=== PATIENT | male | born 1960 | race Caucasian/White ===

== ENCOUNTER 2018-08-07 11:01 | Day surgery (SDC) | payer BC ==
[2018-08-07] MEDS ORDERED: PROPOFOL 20 ML (14:41)
== END 2018-08-07 16:11 | disposition home or self-care (01) ==
LOC: GIL 11:01
DX: Z12.11 Encounter for screening for malignant neoplasm of colon (principal); K64.9 Unspecified hemorrhoids; E11.9 Type 2 diabetes mellitus without complications; E78.5 Hyperlipidemia, unspecified; I10 Essential (primary) hypertension
CPT/HCPCS: 45378; 82962